=== PATIENT | female | born 1985 | race African-American/Black ===

== ENCOUNTER 2025-02-05 16:58 | Inpatient (IN) | payer OTHER, MEDICAID ==
[~2025-02-05] VITALS: Ht 162.6 cm; Wt 49.9 kg
[2025-02-05 17:02] VITALS: O2SAT 100
[2025-02-05 18:35] LABS: BASOPHILS % 0.3 % (0.0-2.0); EOSINOPHILS % 0.4 % (0.0-5.0); HEMATOCRIT. 36.8 % (36.0-48.0); HEMOGLOBIN. 11.9 g/dL (12.0-16.0); LYMPHOCYTES % 18.1 % (20.0-50.0); MEAN PLATELET VOLUME 10.0 fl (7.4-10.4); MONOCYTES % 5.4 % (2.0-8.0); NEUTROPHILS % 75.8 % (40.0-76.0); PLATELET 217 x1000/uL (130-400); RED BLOOD CELL COUNT 3.81 mill/uL (4.2-5.4); RED CELL DISTRIBUTION WIDTH 13.0 % (11.6-14.6)
[2025-02-05 18:44] LABS: INR 1.0
[2025-02-05] MEDS: SODIUM CHLORIDE 0.9% 1,000 ML IV ONE (18:59)
[2025-02-05 19:00] LABS: CREATININE 0.8 mg/dL (0.6-1.0); HCG SCREEN NEGATIVE
[2025-02-05 19:01] LABS: ETHANOL BLOOD < 10 mg/dL (<10); PROTEIN TOTAL 7.3 g/dL (6.0-8.3); UREA NITROGEN BLOOD 7 mg/dL (9-23)
[2025-02-05 19:02] LABS: ASPARTATE AMINOTRANSFERASE 15 IU/L (<34); TROPONIN I HIGH SENSITIVITY < 4 ng/L (3.0-34)
[2025-02-05 19:03] LABS: BILIRUBIN DIRECT < 0.1 mg/dL (<=3.0); BILIRUBIN TOTAL 0.3 mg/dL (0.1-1.0)
[2025-02-05 19:27] LABS: CLARITY URINE CLEAR (CLEAR); COLOR URINE ORANGE (YELLOW); GLUCOSE URINE NEGATIVE (NEGATIVE); KETONES URINE NEGATIVE (NEGATIVE); LEUKOCYTE ESTERASE URINE 1+ (NEGATIVE); NITRITE URINE NEGATIVE (NEGATIVE); OCCULT BLOOD URINE 3+ (NEGATIVE); PH URINE 7.5 (4.5-8.0); PROTEIN URINE 3+ (NEGATIVE); SPECIFIC GRAVITY URINE 1.019 (1.005-1.030); UROBILINOGEN URINE 0.2 E.U./dL (0.2-1.0)
[2025-02-05] MEDS: MAGNESIUM 2 G PREMIX 50 ML IV ONE (19:30)
[2025-02-05 19:37] LABS: BACTERIA URINE 1+; RBC URINE 15-25 /hpf (0-2); SQUAMOUS EPITHELIAL CELL URINE 1+ /lpf (RARE/1+)
[2025-02-05 19:44] LABS: *AMPHETAMINES SCREEN URINE NEGATIVE (NEGATIVE); *BARBITURATES SCREEN URINE NEGATIVE (NEGATIVE); *BENZODIAZEPINES SCREEN URINE NEGATIVE (NEGATIVE); *COCAINE SCREEN URINE NEGATIVE (NEGATIVE); CANNABINOID URINE SCREEN PRESUMPTIVE POSITIVE (NEGATIVE); ECSTASY MDMA SCREEN URINE NEGATIVE (NEGATIVE); METHADONE URINE SCREEN NEGATIVE (NEGATIVE); OPIATES URINE SCREEN NEGATIVE (NEGATIVE); PHENCYCLIDINE URINE SCREEN NEGATIVE (NEGATIVE)
[2025-02-05 20:00] VITALS: BP 140/89; PULSE 75; RESP 15; RESP 16; TEMP 36.6; TEMP 36.6404; O2SAT 99
[2025-02-05] MEDS ORDERED: DOCUSATE SODIUM 100MG CAPSULE PO PRN (21:00)
[2025-02-05] MEDS ORDERED: ACETAMINOPHEN 325MG TABLET PO PRN (21:00)
[2025-02-05] MEDS ORDERED: IPRATROPIUM/ALBUTEROL 0.5-3(2.5)MG/3ML NEB HHN PRN (21:00)
[2025-02-05] MEDS ORDERED: GUAIFENESIN 200MG/10ML SUGAR FREE UDC PO PRN (21:00)
[2025-02-05] MEDS ORDERED: MAGNESIUM/ALUMINUM HYDROXIDE/SIMETHICONE 30ML UDC PO PRN (21:00)
[2025-02-05] MEDS ORDERED: ONDANSETRON HCL 4MG/2ML INJ IV PRN (21:00)
[2025-02-05] MEDS ORDERED: CLONIDINE 0.1MG TABLET PO PRN (21:00)
[2025-02-05] MEDS ORDERED: DEXTROSE 50% WATER 50ML SYRINGE IV PRN (21:30)
[2025-02-05] MEDS: ENOXAPARIN 40MG/0.4ML SYR SUBCUT SCH (22:08)
[2025-02-05] MEDS: ACETAMINOPHEN 325MG TABLET PO PRN (22:22)
[2025-02-05] MEDS ORDERED: CEFTRIAXONE 2GM/50ML 50 ML IV SCH (23:00)
[2025-02-06] VITALS: BP 135/83; PULSE 80; RESP 18; TEMP 36.6; O2SAT 99
[2025-02-06 00:45] LABS: TROPONIN I HIGH SENSITIVITY < 4 ng/L (3.0-34)
[2025-02-06] MEDS: CEFTRIAXONE 2GM/50ML 50 ML IV SCH (02:50)
[2025-02-06 04:00] VITALS: BP 137/88; PULSE 82; RESP 18; TEMP 36.7; O2SAT 99
[2025-02-06] MEDS ORDERED: DEXTROSE 50% WATER 50ML SYRINGE IV PRN (06:45)
[2025-02-06] MEDS ORDERED: BLOOD SUGAR DIAGNOSTIC STRIP TEST SCH (07:10)
[2025-02-06] MEDS: INSULIN LISPRO 100 UNITS/ML SUBCUT SCH (07:23)
[2025-02-06] MEDS: BLOOD SUGAR DIAGNOSTIC STRIP TEST SCH (07:23)
[2025-02-06] MEDS ORDERED: INSULIN LISPRO 100 UNITS/ML SUBCUT SCH (07:40)
[2025-02-06 07:42] LABS: BASOPHILS % 0.3 % (0.0-2.0); EOSINOPHILS % 0.3 % (0.0-5.0); HEMATOCRIT. 41.6 % (36.0-48.0); HEMOGLOBIN. 13.0 g/dL (12.0-16.0); LYMPHOCYTES % 9.2 % (20.0-50.0); MEAN PLATELET VOLUME 11.1 fl (7.4-10.4); MONOCYTES % 2.7 % (2.0-8.0); NEUTROPHILS % 87.5 % (40.0-76.0); PLATELET 173 x1000/uL (130-400); RED BLOOD CELL COUNT 4.19 mill/uL (4.2-5.4); RED CELL DISTRIBUTION WIDTH 13.5 % (11.6-14.6)
[2025-02-06 08:01] LABS: CREATININE 1.1 mg/dL (0.6-1.0)
[2025-02-06 08:02] LABS: TRIGLYCERIDE 66 mg/dL (0-150); UREA NITROGEN BLOOD 11 mg/dL (9-23)
[2025-02-06 08:03] LABS: LDL CHOLESTEROL 95 mg/dL (5-100)
[2025-02-06 08:04] LABS: PHOSPHORUS 2.7 mg/dL (2.5-4.9)
[2025-02-06 08:05] LABS: T4 FREE 1.56 ng/dL (0.89-1.76)
[2025-02-06] MEDS: PANTOPRAZOLE SODIUM 40 MG/VIAL IV SCH (08:36)
[2025-02-06] MEDS: FERROUS SULFATE 325MG TABLET PO SCH (08:36)
[2025-02-06] MEDS: FOLIC ACID 1MG TABLET PO SCH (08:36)
[2025-02-06] MEDS: THIAMINE HCL 100MG TABLET PO SCH (08:36)
[2025-02-06] MEDS: MULTIVITAMINS,THER W-MINERALS TABLET PO SCH (08:36)
[2025-02-06 08:49] VITALS: BP 109/77; PULSE 103; RESP 18; TEMP 36.8; O2SAT 100
[2025-02-06] MEDS: INSULIN GLARGINE 100 UNITS/ML SUBCUT SCH (09:31)
[2025-02-06] MEDS: SODIUM CHLORIDE 0.9% 1,000 ML IV SCH (09:32)
[2025-02-06 11:57] LABS: CREATININE 1.1 mg/dL (0.6-1.0); PROTEIN TOTAL 8.4 g/dL (6.0-8.3); UREA NITROGEN BLOOD 13 mg/dL (9-23)
[2025-02-06 11:58] LABS: ASPARTATE AMINOTRANSFERASE 28 IU/L (<34); TROPONIN I HIGH SENSITIVITY < 4 ng/L (3.0-34)
[2025-02-06 11:59] LABS: BILIRUBIN DIRECT 0.2 mg/dL (<=3.0); BILIRUBIN TOTAL 0.5 mg/dL (0.1-1.0)
[2025-02-06 12:00] VITALS: BP 115/81; PULSE 105; RESP 18; TEMP 36.8; O2SAT 100
[2025-02-06 16:00] VITALS: BP 125/85; PULSE 107; RESP 17; TEMP 36.6; O2SAT 100
[2025-02-06] MEDS: ENOXAPARIN 30MG/0.3ML SYR SUBCUT SCH (17:36)
[2025-02-06] MEDS ORDERED: DEXT 5%/0.9% NACL 1,000 ML IV SCH (18:45)
[2025-02-06 20:00] VITALS: BP 134/89; PULSE 118; RESP 20; TEMP 36.8; O2SAT 100
[2025-02-06] MEDS: DEXT 5%/0.9% NACL 1,000 ML IV SCH (20:18)
[2025-02-07] VITALS: BP 119/86; PULSE 94; RESP 18; TEMP 36.8; O2SAT 99
[2025-02-07] MEDS: CEFTRIAXONE 2GM/50ML 50 ML IV SCH (03:44)
[2025-02-07 04:00] VITALS: BP 119/84; PULSE 82; RESP 18; TEMP 36.8; O2SAT 99
[2025-02-07 11:59] VITALS: BP 123/87; PULSE 89; RESP 18; TEMP 36.5; O2SAT 100
[2025-02-07] MEDS: ALPRAZOLAM 0.5 MG TABLET PO SCH (12:34)
[2025-02-07 16:00] VITALS: BP 125/80; PULSE 92; RESP 17; TEMP 36.6; O2SAT 100
[2025-02-07] MEDS: LEVETIRACETAM 500MG TABLET PO SCH (21:10)
[2025-02-08 02:40] VITALS: BP 110/75; PULSE 75; RESP 18; TEMP 36.2; O2SAT 99
[2025-02-08 04:00] VITALS: BP 110/65; PULSE 78; RESP 18; TEMP 36.2; O2SAT 99
[2025-02-08 08:00] VITALS: BP 106/71; PULSE 67; RESP 18; TEMP 36.4; O2SAT 98
[2025-02-08] MEDS: INSULIN GLARGINE 100 UNITS/ML SUBCUT SCH (09:41)
[2025-02-08 12:00] VITALS: BP 115/80; PULSE 80; RESP 17; TEMP 36.6; O2SAT 100
[2025-02-08 16:00] VITALS: BP 133/89; PULSE 75; RESP 18; TEMP 36.7; O2SAT 100
[2025-02-08 17:53] VITALS: BP 132/87; PULSE 81; RESP 18; TEMP 98.1
== END 2025-02-08 19:34 | disposition home or self-care (01) | DRG 92 ==
LOC: EDBD 16:58 → ER 16:58 → 8WST 19:42 → EDBEDREQ 19:50 → ENRESERV 20:48 → 7EST 02-08 02:30
PROVIDERS: ADMIT Student in an Organized Health Care Education/Training Program; ATTEND Hospitalist
DX: G92.8 Other toxic encephalopathy (principal); E87.1 Hypo-osmolality and hyponatremia; N17.9 Acute kidney failure, unspecified; D64.9 Anemia, unspecified; E11.65 Type 2 diabetes mellitus with hyperglycemia; E83.42 Hypomagnesemia; N39.0 Urinary tract infection, site not specified; G40.909 Epilepsy, unspecified, not intractable, without status epilepticus; Z96.41 Presence of insulin pump (external) (internal); E87.5 Hyperkalemia; Z79.4 Long term (current) use of insulin; Z87.820 Personal history of traumatic brain injury
CPT/HCPCS: 36415; 71045; 80048; 80061; 80076; 80305; 80307; 80320; 80329; 81003; 82010; 82550; 82962; 83036; 83735; 83880; 84100; 84145; 84439; 84443; 84484; 84703; 85025; 93005; 97166; 97535; 99285; A4606; J0696; J1650; J1815; J2470; J3475; J7030; J7042; G0480